=== PATIENT | male | born 1940 | race Caucasian/White ===

== ENCOUNTER 2017-03-02 06:24 | Day surgery (SDC) | payer OTHER, BC ==
[~2017-03-02] VITALS: Ht 172.7 cm; Wt 79.4 kg
[~2017-03-02 06:24] MED LIST: ADULT LOW DOSE81 M1 PO; BP PO; FLONASE16 G1 BOTH NARES; LATANOPROST2.5 ML LEFT EYE; LEVOTHROID,SYN0.1 MG PO; LISINOPRIL20 MG PO; PRILOSEC PO; PROSCAR5 MG PO; PROSTATE PO; Proventil,Ventolin H IH; SYNTHROID125 MCG PO; VICODIN,LORT1 TABLET PO; ZESTRIL,PRINIVI20 MG PO; ZOFRAN ODT4 MG PO
[2017-03-02 07:06] VITALS: BP 134/75
[2017-03-02 11:15] VITALS: BP 115/61
[2017-03-02 12:11] VITALS: BP 109/61
== END 2017-03-02 12:16 | disposition home or self-care (01) ==
LOC: SDC 06:24
DX: H35.81 Retinal edema (principal); H35.372 Puckering of macula, left eye; I10 Essential (primary) hypertension; J45.909 Unspecified asthma, uncomplicated; K21.9 Gastro-esophageal reflux disease without esophagitis; E03.9 Hypothyroidism, unspecified; I35.8 Other nonrheumatic aortic valve disorders; E78.00 Pure hypercholesterolemia, unspecified; Z87.891 Personal history of nicotine dependence; Z88.0 Allergy status to penicillin; Z79.82 Long term (current) use of aspirin; Z79.899 Other long term (current) drug therapy
CPT/HCPCS: J0131; J0330; J0690; J1100; J2405; J3010